=== PATIENT | female | born 1990 | race Caucasian/White ===

== ENCOUNTER 2017-01-20 16:07 | Emergency (ER) | payer BC ==
[~2017-01-20] VITALS: Ht 162.6 cm; Wt 95.3 kg
[2017-01-20 16:18] VITALS: BP 122/66; PULSE 87; RESP 18; TEMP 98.2; O2SAT 96
--- NOTE | 2017-01-20 16:22 | NUR ---
Pt placed to ER bed 04 and to gown. Pt report given to LE Geronimo and Dr. Goel.
--- NOTE | 2017-01-20 16:24 | NUR ---
c/o headache,nausea for two weeks.awake,alert,oriented x 4,no neuro deficit noted.
--- NOTE | 2017-01-20 16:40 | NUR ---
ER at bedside examining patient.
[2017-01-20] MEDS ORDERED: KETOROLAC TROMETHAMINE 60 MG/2 ML VIAL IM ONE (16:45)
--- NOTE | 2017-01-20 17:23 | NUR ---
Patient given written and verbal discharge instructions and verbalizes understanding. ER MD discussed with patient the results and treatment provided. Given copies of tests performed in ER. Patient in stable condition. ID arm band removed. Rx x2 of benadryl,compazine given. Patient educated on pain management and to follow up with PMD. Pain Scale 0/10 . Opportunity for questions provided and answered.
[2017-01-20 17:24] VITALS: BP 120/71; PULSE 81; RESP 18; TEMP 98.2; O2SAT 96
== END 2017-01-20 17:24 | disposition home or self-care (01) ==
LOC: SED 16:07 → EDBD 16:07 → SED 17:24
DX: R51 Headache (principal); R03.0 Elevated blood-pressure reading, without diagnosis of hypertension
CPT/HCPCS: 81025; 96372; 99283; J1885

== ENCOUNTER 2017-01-28 17:16 | Emergency (ER) | payer BC ==
[~2017-01-28] VITALS: Ht 162.6 cm; Wt 97.5 kg
[2017-01-28 17:44] VITALS: BP 126/79; PULSE 101; RESP 16; TEMP 97.4; O2SAT 96
--- NOTE | 2017-01-28 17:45 | NUR ---
Pt presents to ER for persistent cough and headache despite having recently completed Z-andrew.
--- NOTE | 2017-01-28 19:40 | NUR ---
MD Dr. Tilley examining patient in triage room.
--- NOTE | 2017-01-28 19:45 | NUR ---
Patient unable to be found at this time, MD discharge papers ready for patient. Patient left without discharge papers.
== END 2017-01-28 19:15 | disposition left against medical advice (07) ==
LOC: SED 17:16
DX: J06.9 Acute upper respiratory infection, unspecified (principal)
CPT/HCPCS: 99281